=== PATIENT | female | born 1985 | race African-American/Black ===

== ENCOUNTER 2020-06-18 00:23 | Emergency (ER) | payer OTHER ==
[~2020-06-18] VITALS: Ht 167.6 cm; Wt 77.1 kg
== END 2020-06-25 13:22 | disposition designated cancer center or children's hospital (05) ==
LOC: ER 00:23
DX: S30.0XXA Contusion of lower back and pelvis, initial encounter (principal); F25.8 Other schizoaffective disorders; F41.1 Generalized anxiety disorder; Y04.2XXA Assault by strike against or bumped into by another person, initial encounter; Y93.89 Activity, other specified; Y92.89 Other specified places as the place of occurrence of the external cause; Y99.8 Other external cause status; Z03.818 Encounter for observation for suspected exposure to other biological agents ruled out

== ENCOUNTER 2023-04-18 16:45 | Emergency (ER) | payer OTHER ==
[~2023-04-18] VITALS: Ht 162.6 cm; Wt 131.5 kg
== END 2023-04-18 18:33 | disposition home or self-care (01) ==
LOC: ER 16:45
DX: L30.8 Other specified dermatitis (principal); Z91.013 Allergy to seafood

== ENCOUNTER 2023-05-05 01:32 | Emergency (ER) | payer OTHER ==
[~2023-05-05] VITALS: Ht 167.6 cm; Wt 99.8 kg
[2023-05-05 04:52] LABS: HEMATOCRIT 37.5 % (36.0-45.00); HEMOGLOBIN 12.4 g/dL (12.0-15.00); MEAN CELL VOLUME 82.7 fL (80.00-100.00); MEAN CORPUSCULAR HEMOGLOBIN 27.2 pg (27.00-32.0); MEAN CORPUSCULAR HGB CONC 32.9 g/dl (32.0-36.0); PLATELET COUNT 303 K/uL (150-450); RED BLOOD COUNT 4.54 M/uL (4.00-6.00); RED CELL DISTRIBUTION WIDTH 17.6 % (11.5-14.5)
[2023-05-05 05:12] LABS: CALCIUM 8.8 mg/dL (8.5-10.1); CREATININE SERUM 0.89 mg/dL (0.55-1.02); GFR 70.98; POTASSIUM 3.68 mEq/L (3.5-5.1)
== END 2023-05-05 11:05 | disposition home or self-care (01) ==
LOC: ER 01:32
PROVIDERS: General Practice
DX: R05.9 Cough, unspecified (principal); R53.81 Other malaise; Z20.822 Contact with and (suspected) exposure to COVID-19

== ENCOUNTER → 2023-05-10 | Emergency (ER) | payer OTHER | END | disposition home or self-care (01) | LOC: ER 22:21 | DX: R53.81 Other malaise (principal); J00 Acute nasopharyngitis [common cold]; R50.9 Fever, unspecified; R05.9 Cough, unspecified; Z20.822 Contact with and (suspected) exposure to COVID-19; Z91.013 Allergy to seafood ==